=== PATIENT | female | born 1975 | race Two or more races ===

== ENCOUNTER 2020-05-01 14:14 | Emergency (ER) | payer MEDICAID ==
[~2020-05-01] VITALS: Ht 162.6 cm; Wt 87.0 kg
[2020-05-01] MEDS ORDERED: TETRACAINE 0.5% OPHTH DROPS 4ML BOTHEYE ONE (17:00)
[2020-05-01] MEDS ORDERED: FLUORESCEIN SODIUM 1MG/STRIP BOTHEYE ONE (17:00)
[2020-05-01 18:25] VITALS: BP 127/75
== END 2020-05-01 18:27 | disposition home or self-care (01) ==
LOC: ER 14:38
DX: H57.11 Ocular pain, right eye (principal)
CPT/HCPCS: 99283

== ENCOUNTER 2021-04-07 09:54 | Emergency (ER) | payer MEDICAID ==
[~2021-04-07] VITALS: Ht 162.6 cm; Wt 95.0 kg
[2021-04-07 12:37] VITALS: BP 120/78
== END 2021-04-07 12:37 | disposition home or self-care (01) ==
LOC: ER 09:54
DX: E04.9 Nontoxic goiter, unspecified (principal)
CPT/HCPCS: 76536; 99284